=== PATIENT | female | born 1975 | race Caucasian/White ===

== ENCOUNTER 2021-01-11 18:57 | Emergency (ER) | payer OTHER ==
[~2021-01-11] VITALS: Ht 160 cm; Wt 73.9 kg
[2021-01-11 19:05] VITALS: BP 129/65
--- NOTE | 2021-01-11 19:24 | NUR ---
ERMD at bedside for examination
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
--- NOTE | 2021-01-11 19:36 | NUR ---
patient ambulated to the bathroom for urine collection
[2021-01-11] MEDS ORDERED: NACL 0.9% 1,000 ML IV ONE (20:00)
--- NOTE | 2021-01-11 20:05 | NUR ---
Charu sethi in ED - 01/11/21 at 2010 by GORGE patient refused IV and medications throught IV
--- NOTE | 2021-01-11 20:05 | NUR ---
patient refused IV and medications throught IV, ERMD made aware
--- NOTE | 2021-01-11 20:40 | NUR ---
daughter in law called, spoke about updates on patient status.
[2021-01-11 21:02] LABS: ALBUMIN 3.6 g/dL (3.4-5.0); ANION GAP 13.8 (8-16); CARBON DIOXIDE 25.2 mmol/L (21-32); CREATININE 0.6 mg/dL (0.6-1.3); TOTAL BILIRUBIN 0.7 mg/dL (0.0-1.0)
[2021-01-11] MEDS ORDERED: METF-430 PO (21:37)
[2021-01-11 21:49] VITALS: BP 100/70
--- NOTE | 2021-01-11 21:49 | NUR ---
Patient discharged with v/s stable. Written and verbal after care instructions given and explained. Patient alert, oriented and verbalized understanding of instructions. Ambulatory with steady gait. All questions addressed prior to discharge. ID band removed. Patient advised to follow up with PMD. Rx of Metformin HCL ER given. Patient educated on indication of medication including possible reaction and side effects. Opportunity to ask questions provided and answered.
== END 2021-01-11 21:49 | disposition home or self-care (01) ==
LOC: MED 18:57
DX: E11.65 Type 2 diabetes mellitus with hyperglycemia (principal); R53.1 Weakness; R42 Dizziness and giddiness
CPT/HCPCS: 36415; 80053; 81002; 82948; 99283

== ENCOUNTER → 2021-08-07 | Emergency (ER) | payer MEDICAID, OTHER ==
[~2021-08-07] VITALS: Ht 165.1 cm; Wt 57.2 kg
[~2021-08-07] MED LIST: METF-430 PO; MIRABULK PO; NITR100C7 PO
[2021-08-07 10:58] VITALS: BP 109/56
[2021-08-07 13:10] VITALS: BP 102/70
== END | disposition home or self-care (01) ==
LOC: MED 10:50
DX: N39.0 Urinary tract infection, site not specified (principal); K59.00 Constipation, unspecified; E11.9 Type 2 diabetes mellitus without complications; Z79.899 Other long term (current) drug therapy; Z79.2 Long term (current) use of antibiotics
CPT/HCPCS: 81002; 81025; 99283